=== PATIENT | female | born 1960 | race American Indian/Alaskan Native ===

== ENCOUNTER 2017-08-24 08:46 | Day surgery (SDC) | payer OTHER ==
[2017-08-23 13:59] VITALS: BMI 32.3
--- NOTE | 2017-08-24 09:44 | CP.SDSHP ---
Same Day Surgery H & P - History Proposed Procedure: colonoscopy Pre-Op Diagnosis: diarrhea - Allergies Allergies: Allergies No Known Allergies Allergy (Verified 04/12/16 22:11) - Physical Exam General Appearance: nl Vital Signs: Vital Signs 08/24/17 09:17 Temperature 97.6 F Pulse Rate 73 Respiratory 20 Rate Blood Pressure 125/84 O2 Sat by Pulse 96 Oximetry Mental Status: Alert & Oriented x3 Neuro: WNL Heart: WNL Lungs: WNL GI: WNL - {Optional Preform as Required} Abdomen: WNL - Impression Impression: diarrhea Pt. Evaluated Today:Candidate for Anesthesia & Procedure: Yes - Date & Time Date: 08/24/17 Time: 09:44 Short Stay Discharge - Short Stay Discharge Admitting Diagnosis/Reason for Visit: CHRONIC DIARRHEA Disposition: HOME/ ROUTINE
[2017-08-24 10:09] VITALS: TEMP 97.8; O2SAT 100
[2017-08-24] MEDS ORDERED: Propofol 10 mg/ml Inj (20 ML) ONE (10:50)
[2017-08-24 11:38] VITALS: BP 130/68; PULSE 68; RESP 16
== END 2017-08-24 11:20 | disposition home or self-care (01) ==
LOC: C.ENDO 08:46
PROVIDERS: ATTEND Internal Medicine
DX: K52.9 Noninfective gastroenteritis and colitis, unspecified (principal); K64.8 Other hemorrhoids; I10 Essential (primary) hypertension
CPT/HCPCS: 45380; 88305; 88313; 88342; J2704

== ENCOUNTER 2018-07-15 10:07 | Outpatient (CLI) | payer OTHER | END 2018-07-15 10:08 | disposition home or self-care (01) | LOC: C.DEXAIC 10:08 | DX: M81.0 Age-related osteoporosis without current pathological fracture (principal); R76.11 Nonspecific reaction to tuberculin skin test without active tuberculosis ==